=== PATIENT | male | born 1990 | race Caucasian/White ===

== ENCOUNTER → 2017-06-09 | Outpatient (CLI) | payer OTHER ==
[~2017-06-09] MED LIST: GADAVIST IV PRN
--- NOTE | 2017-06-09 09:38 | DIAGNOSTIC IMAGING REPORT ---
BRAIN COMBO HISTORY: 26 years-old Male CHIARI MALFORMATION,MIGRAINES chronic migraines with nausea and confusion COMPARISON: MRI of the brain from outside institution 07/06/2011 TECHNIQUE: Multiplanar multisequence MRI of the brain was obtained both with and without the use of 9 mL Gadavist FINDINGS: There is no restricted diffusion to suggest acute infarction. Large field of view metal furniture glazier localizer images demonstrate no gross abnormality. The midline structures including the corpus callosum, brainstem, optic chiasm, infundibulum and pituitary gland appear unremarkable the sagittal T1 series. No significant degenerative changes of the cervical spine. Cerebellar tonsils extend 6 mm below the level the foramen magnum compatible with Chiari I malformation. No syrinx of the imaged cervical spinal cord identified. Unchanged 9 x 5 mm ovoid circumscribed T1 and T2 hyperintense lesion of the left occipital calvarium as seen on image 18 series 3 previously measured 8 x 5 mm on study dated 07/06/2011 and appears to be present within the diploic space. No associated restricted diffusion. This may reflect an arachnoid granulation. There is no acute intracranial hemorrhage, midline shift, abnormal extra-axial collections, hydrocephalus or intracranial mass. The major flow voids at the level of the skull base appear to be patent. Mastoid air cells appear clear. Mild to moderate polypoid mucosal thickening of the maxillary sinuses. Mild ethmoid sinus disease. Hypoplasia of the right frontal sinus. Soft tissues and orbits are unremarkable. There is no abnormal intra-axial or extra-axial enhancement. IMPRESSION: 1. No acute intracranial abnormality identified. No abnormal enhancement. 2. Chiari I malformation without syrinx identified. 3. Moderate maxillary sinus disease. The above report was generated using voice recognition software. It may contain grammatical, syntax or spelling errors. Electronically signed by: Ernie Mon M.D. 06/09/2017 9:37 AM Dictated Date/Time: 06/09/2017 9:25 AM
== END | disposition home or self-care (01) ==
LOC: C.MRI 08:40
PROVIDERS: ATTEND Nurse Practitioner Adult Health
DX: R51 Headache (principal); G43.009 Migraine without aura, not intractable, without status migrainosus; G93.5 Compression of brain

== ENCOUNTER 2018-10-02 19:12 | Inpatient (IN) ==
[2018-10-02] MEDS ORDERED: SODIUM CHLORIDE 0.9% 1000ML 1,000 ML IV ONE (20:49)
[2018-10-02 21:08] LABS: Appearance Urine Clear (Clear); Bilirubin Urine Negative (Negative); Blood Urine 3+ (Negative); Color Urine Yellow; Glucose Urine UA Negative (Negative); Ketones Urine Negative (Negative); Leukocyte Esterase Urine Negative (Negative); Nitrite Urine Negative (Negative); Protein Urine Negative (Negative); Urobilinogen Urine Negative (Negative); pH Urine 6.5 (4.5-7.5)
[2018-10-02 21:19] LABS: Basophils # (auto) 0.02 K/uL (0-0.2); Basophils % (auto) 0.2 %; Eosinophils # (auto) 0.07 K/uL (0-0.5); Eosinophils % (auto) 0.6 %; Hematocrit (blood only) 44.5 % (42-52); Hemoglobin 16.3 g/dL (14.0-18.0); Immature Granulocytes # (auto) 0.02 K/uL (0.00-0.02); Immature Granulocytes % (auto) 0.2 %; Lymphocytes # (auto) 2.08 K/uL (1.2-3.4); Lymphocytes % (auto) 16.7 %; Mean Corpuscular Hgb Conc 36.6 g/dL (32-36); Mean Corpuscular Volume 89.4 fL (80-100); Mean Platelet Volume 10.1 fL (7.4-10.4); Monocytes # (auto) 1.15 K/uL (0.11-0.59); Monocytes % (auto) 9.2 %; Neutrophils # (auto) 9.11 K/uL (1.4-6.5); Neutrophils % (auto) 73.1 %; Platelet Count 312 K/uL (130-400); RDW Standard Deviation 38.8 fL (36.4-46.3); Red Blood Count 4.98 M/uL (4.7-6.1); White Blood Count 12.45 K/uL (4.8-10.8)
[2018-10-02 21:27] LABS: Albumin Level 4.4 gm/dl (3.4-5.0); Calcium 9.6 mg/dl (8.5-10.1); Creatinine Clr Calc Pharmacy 130.8 ml/min; Est GFR (Non-African American) 98.4; Magnesium 2.1 mg/dl (1.8-2.4); Potassium 3.5 mmol/L (3.5-5.1)
[2018-10-02 21:28] LABS: Epithelial Cell Urine Auto 0-5 /lpf (0-5); RBC Urine Automated 0-4 /hpf (0-4); WBC Urine Automated 0 /hpf (0-5)
[2018-10-02 21:55] LABS: Albumin Globulin Ratio 1.3 (0.9-2); Bilirubin,Total 0.5 mg/dl (0.2-1); Globulin 3.4 gm/dl (2.5-4.0); Total Protein 7.8 gm/dl (6.4-8.2)
[2018-10-02] MEDS ORDERED: LACTATED RINGER'S 1,000 ML IV ONE ×2 (22:01→22:58)
[2018-10-02 22:08] LABS: Lyme Ab IgG w/WB Rflx Negative (Negative); Lyme Ab IgM w/WB Rflx Negative (Negative)
--- NOTE | 2018-10-03 00:51 | History & Physical Report ---
Date of Service October 03, 2018 Assessment & Plan (1) Rhabdomyolysis: Pleasant 28yo M no significant PMH admitted 10/03 for rhabdomyolysis Rhabdomyolysis -Aggressive IVF: NSS 200ml/hr -Will send PT/INR, urine myoglobin -Repeat LFTs, CK in AM -Urine pH of 6.5, no indication for bicarb at this time -Continue to monitor for compartment syndrome symptoms Dispo: med/surg Code: Full DVTP: ambulation as tolerated History of Present Illness Chief Complaint: Generalized pain and weakness Primary Care Provider: [facility] Patient is an otherwise healthy 28yo M who presents with generalized pain and dark urine. Patient began a new workout regime last week, denies use of protein supplements/workout powders/pre-workout, etc. States he started doing weight lifting last tuesday, and felt sore afterwards attributing it to lactic acid, took some time off and worked out again at a high level 2 days ago. He looked up online possible causes of this, and notes when his urine started to get darker today that he should come in for evaluation. Currently, his upper extremities are most bothersome. In the ER, labs revealed a CK of 38,754, AST of 464, ALT of 149. BMP normal. UA showing pH 6.5, 3+blood, RBC 0-4, all consistent with rhabdomyolysis. He was given 3L of fluid in the ER. No bicarb given/indicated. Allergies Allergy/AdvReac Type Severity Reaction Status Date / Time No Known Allergies Allergy Unverified 10/02/18 23:36 Home Medications Home Medications Medication Instructions Recorded Confirmed Type No Known Home Medications 10/02/18 10/02/18 History Past Med/Surg History Medical History Heart burn Family History Other No significant family history Social History Preferred Language: Hungarian Communication Ability: Effective Beliefs That Will Affect Care: None Current Living Situation: Other Current Living Situation Comment: With girlfriend Other Information That Helps Us Care for You: No Feels Safe at Home: Yes Safety Concerns: Feels Safe At This Time Smoking Status: Former smoker Tobacco Type: cigarettes and smokeless tobacco Do You Dip or Chew Tobacco: No Second Hand Exposure: No Hx Alcohol Use: Yes Alcohol type: beer Hx Substance Use: No Review of Systems Review of Systems: All systems reviewed & are unremarkable except as noted in HPI & below Constitutional: + body aches; no fever Musculoskeletal: + myalgia and + body aches Physical Exam Constitutional: WD/WN, vitals as above Eyes: PERRL, conjunctivae normal, anicteric sclerae ENMT: external ear and nose normal, oropharynx normal Neck: trachea midline, no thyromegaly Respiratory: normal respiratory effort, lungs clear to auscultation Cardiovascular: RRR, no murmur, no edema Gastrointestinal (Abdomen): normal bowel sounds, soft, nontender, no hepatosplenomegaly Musculoskeletal: no cyanosis or clubbing, extremities motor strength 5/5 Extremities: no carpal pedal spasm No compartment syndrome noted in extremities Skin: no rashes, warm and dry Neurologic: patellar DTR's 2+ bilat, sensation intact Psychiatric: A+Ox3, euthymic affect Results & Data Vital Signs (Past 12 Hours) Vital Signs Temp Pulse Pulse Resp BP BP Pulse Ox 10/02/18 21:56 81 16 145/93 H 95 10/02/18 19:16 36.5 C 93 H 18 158/97 H 99 Laboratory Results 10/02/18 10/02/18 10/02/18 Range/Units 20:18 20:18 20:18 WBC (4.8-10.8) K/uL RBC (4.7-6.1) M/uL Hgb (14.0-18.0) g/dL Hct (42-52) % MCV (80-100) fL MCH (25-34) pg MCHC (32-36) g/dL RDW Std Deviation (36.4-46.3) fL RDW Coeff of Shuan (11.5-14.5) % Plt Count (130-400) K/uL MPV (7.4-10.4) fL Immature Gran % (Auto) % Neut % (Auto) % Lymph % (Auto) % [place] % (Auto) % Eos % (Auto) % Baso % (Auto) % Immature Gran # (Auto) (0.00-0.02) K/uL Neut # (Auto) (1.4-6.5) K/uL Lymph # (Auto) (1.2-3.4) K/uL [place] # (Auto) (0.11-0.59) K/uL Eos # (Auto) (0-0.5) K/uL Baso # (Auto) (0-0.2) K/uL Sodium 139 (136-145) mmol/L Potassium 3.5 (3.5-5.1) mmol/L Chloride 103 (98-107) mmol/L Carbon Dioxide 27 (21-32) mmol/L Anion Gap 9.0 (3-11) BUN 11 (7-18) mg/dl Creatinine 1.03 (0.6-1.4) mg/dl Est Cr Clr Drug Dosing 130.8 ml/min Est GFR ( Amer) 114.0 Est GFR (Non-Af Amer) 98.4 BUN/Creatinine Ratio 11.0 (10-20) Glucose 88 (70-99) mg/dl Calcium 9.6 (8.5-10.1) mg/dl Magnesium 2.1 (1.8-2.4) mg/dl Total Bilirubin 0.5 (0.2-1) mg/dl AST 464 H (15-37) U/L ALT 149 H (12-78) U/L Alkaline Phosphatase 82 (45-117) U/L Total Creatine Kinase 03646 H (39-308) U/L Total Protein 7.8 (6.4-8.2) gm/dl Albumin 4.4 (3.4-5.0) gm/dl Globulin 3.4 (2.5-4.0) gm/dl Albumin/Globulin Ratio 1.3 (0.9-2) Urine Color Yellow Urine Appearance Clear (Clear) Urine pH 6.5 (4.5-7.5) Ur Specific [place] 1.010 (1.000-1.030) Urine Protein Negative (Negative) Urine Glucose (UA) Negative (Negative) Urine Ketones Negative (Negative) Urine Blood 3+ H (Negative) Urine Nitrite Negative (Negative) Urine Bilirubin Negative (Negative) Urine Urobilinogen Negative (Negative) Ur Leukocyte Esterase Negative (Negative) Urine WBC (Auto) 0 (0-5) /hpf Urine RBC (Auto) 0-4 (0-4) /hpf U Hyaline Cast (Auto) Not Reportable U Epithel Cells (Auto) 0-5 (0-5) /lpf Urine Bacteria (Auto) Not Reportable Lyme Disease IgG Ab Negative (Negative) Lyme Disease IgM Ab Negative (Negative) 10/02/18 Range/Units 20:18 WBC 12.45 H (4.8-10.8) K/uL RBC 4.98 (4.7-6.1) M/uL Hgb 16.3 (14.0-18.0) g/dL Hct 44.5 (42-52) % MCV 89.4 (80-100) fL MCH 32.7 (25-34) pg MCHC 36.6 H (32-36) g/dL RDW Std Deviation 38.8 (36.4-46.3) fL RDW Coeff of Shaun 12.0 (11.5-14.5) % Plt Count 312 (130-400) K/uL MPV 10.1 (7.4-10.4) fL Immature Gran % (Auto) 0.2 % Neut % (Auto) 73.1 % Lymph % (Auto) 16.7 % Lynn % (Auto) 9.2 % Eos % (Auto) 0.6 % Baso % (Auto) 0.2 % Immature Gran # (Auto) 0.02 (0.00-0.02) K/uL Neut # (Auto) 9.11 H (1.4-6.5) K/uL Lymph # (Auto) 2.08 (1.2-3.4) K/uL [place] # (Auto) 1.15 H (0.11-0.59) K/uL Eos # (Auto) 0.07 (0-0.5) K/uL Baso # (Auto) 0.02 (0-0.2) K/uL Sodium (136-145) mmol/L Potassium (3.5-5.1) mmol/L Chloride (98-107) mmol/L Carbon Dioxide (21-32) mmol/L Anion Gap (3-11) BUN (7-18) mg/dl Creatinine (0.6-1.4) mg/dl Est Cr Clr Drug Dosing ml/min Est GFR ( Amer) Est GFR (Non-Af Amer) BUN/Creatinine Ratio (10-20) Glucose (70-99) mg/dl Calcium (8.5-10.1) mg/dl Magnesium (1.8-2.4) mg/dl Total Bilirubin (0.2-1) mg/dl AST (15-37) U/L ALT (12-78) U/L Alkaline Phosphatase (45-117) U/L Total Creatine Kinase (39-308) U/L Total Protein (6.4-8.2) gm/dl Albumin (3.4-5.0) gm/dl Globulin (2.5-4.0) gm/dl Albumin/Globulin Ratio (0.9-2) Urine Color Urine Appearance (Clear) Urine pH (4.5-7.5) Ur Specific [place] (1.000-1.030) Urine Protein (Negative) Urine Glucose (UA) (Negative) Urine Ketones (Negative) Urine Blood (Negative) Urine Nitrite (Negative) Urine Bilirubin (Negative) Urine Urobilinogen (Negative) Ur Leukocyte Esterase (Negative) Urine WBC (Auto) (0-5) /hpf Urine RBC (Auto) (0-4) /hpf U Hyaline Cast (Auto) U Epithel Cells (Auto) (0-5) /lpf Urine Bacteria (Auto) Lyme Disease IgG Ab (Negative) Lyme Disease IgM Ab (Negative) Code Status & VTE Plan Code Status Full Supervising Physician Co-Signing Physician Notes Patient seen and examined, chart reviewed, case discussed with Dr. Cruz and I agree with her assessement and plan as above. Briefly, patient is a 28yo C male with no significant past medical or surgical history presenting with rhabdomyolysis after resuming weight lifting. Patient with severe pain in his upper extremities. Also with dark urine On exam he is afebrile, hemodynamically stable, NAD Skin - intact, no rash HEENT - MMM, neck supple, PERRL Heart - +S1/S2, regular, on m/r/g Lungs -CTA Abd - +BS, soft, NT/ND Ext - muscles soft, slightly tender in UEs Neuro - no deficits Labs and images reviewed - WBC=12.45, NAC=894, IRU=392, MN=42052, UA with 3+ blood, negative RBCs Assessment/Plan: 28yo C male with exertional rhabdomyolysis. Patient with no PMH/PSH/medications or supplements -Admit to medical floor -Check urine myoglobin -BMP in AM -LFTs in AM -Aggressive IVF -Remainder of plan as above Resident Activity Tracking Resident Involvement: Resident Care Provided Care Provided: Adult Hospital Medicine (1) Rhabdomyolysis Rhabdomyolysis type: non-traumatic Qualified Code(s): M62.82 - Rhabdomyolysis
[2018-10-03] MEDS ORDERED: MAGNESIUM HYDROXIDE SUSP 30 ML UDC PO PRN (02:26)
[2018-10-03] MEDS ORDERED: POLYETHYLENE (MIRALAX) 17 GM PACK PO PRN (02:26)
[2018-10-03] MEDS ORDERED: ONDANSETRON INJ 2 MG/ML 2 ML VIAL IV PRN (02:26)
[2018-10-03] MEDS: SODIUM CHLORIDE 0.9% 1000ML 1,000 ML IV SCH ×5 (02:43→22:24)
[2018-10-03] MEDS: ALUMINUM/MAGNESIUM SUSP 30 ML UDC PO PRN ×2 (02:46→11:40)
[2018-10-03 08:02] LABS: Prothrombin Time 10.2 Seconds (9.0-12.0)
[2018-10-03 08:37] LABS: Albumin Level 3.5 gm/dl (3.4-5.0); Calcium 8.9 mg/dl (8.5-10.1); Creatinine Clr Calc Pharmacy 154.3 ml/min; Est GFR (African American) 136.1; Est GFR (Non-African American) 117.5; Potassium 4.4 mmol/L (3.5-5.1)
[2018-10-03 08:38] LABS: Hematocrit (blood only) 39.2 % (42-52); Mean Corpuscular Hgb Conc 35.7 g/dL (32-36); Mean Corpuscular Volume 89.3 fL (80-100); Platelet Count 250 K/uL (130-400); Red Blood Count 4.39 M/uL (4.7-6.1); White Blood Count 7.62 K/uL (4.8-10.8)
[2018-10-03 08:39] LABS: ALC (manual) 2.85 K/uL (1.2-3.4); Eosinophils % (manual) 2.6 %; Lymphocytes # (manual) 1.52 K/uL (1.2-3.4); Monocytes # (manual) 0.53 K/uL (0.11-0.59); Reactive Lymphocytes # (manual) 1.33 K/uL
[2018-10-03 09:05] LABS: Albumin Globulin Ratio 1.3 (0.9-2); Bilirubin,Total 0.8 mg/dl (0.2-1); Globulin 2.8 gm/dl (2.5-4.0); Total Protein 6.3 gm/dl (6.4-8.2)
[2018-10-03] MEDS: ACETAMINOPHEN 325 MG TAB PO PRN (15:30)
--- NOTE | 2018-10-04 02:01 | Emergency Department Note ---
Entered by Tino Ferrari acting as a scribe for Ailin Martinez DO History of Present Illness General Chief complaint: Pain (Generalized) Stated complaint: DARK BROWN URINE, ARM AND CHEST PAIN Time Seen by Provider: 10/02/18 20:35 Source: patient History of Present Illness Onset (ago): day(s) 2 Location: chest and upper extremity Pain Consistency: + other (worsening) Quality: + other (soreness) Exacerbated By: + movement (lifting weights) Associated symptoms: + other (dark urine) The patient is a 28 year old male who presents to the Emergency Room with complaints of worsening muscle soreness. The patient reports that he did cardio and lifted weights for the upper body two days ago for the first time in a while. He states that it was challenging, but it was not beyond what he has done in the past. He reports that he was sore primarily in the chest and arms yesterday, and his soreness worsened today to the point where he had great difficulty moving his arms. He also reports that his urine has become dark even though he is not drinking any less than usual. He notes intermittent tingling in his pinky. He denies any dizziness. He notes that he also worked out his lower body 5 days ago. He denies a history of kidney problems. He states that he regularly takes Zantac for heartburn. No other recent trauma or change in activity. Home Medications Home Medications Medication Instructions Recorded Confirmed Type No Known Home Medications 10/02/18 10/02/18 History Allergies Allergy/AdvReac Type Severity Reaction Status Date / Time No Known Allergies Allergy Unverified 10/02/18 23:36 Past Med/Surg History Medical History Heart burn Family History Other No significant family history Social History Preferred Language: Bulgarian Communication Ability: Effective Beliefs That Will Affect Care: None Current Living Situation: Other Current Living Situation Comment: With girlfriend Other Information That Helps Us Care for You: No Feels Safe at Home: Yes Safety Concerns: Feels Safe At This Time Smoking Status: Former smoker Tobacco Type: cigarettes and smokeless tobacco Do You Dip or Chew Tobacco: No Second Hand Exposure: No Hx Alcohol Use: Yes Alcohol type: beer Hx Substance Use: No Review of Systems See HPI for pertinent positives & negatives. and A total of 10 systems reviewed and were otherwise negative Physical Exam Vital Signs Vital Signs - 24 hr 10/02/18 19:16 10/02/18 21:56 Temperature 97.7 F Temperature Source Oral Sepsis Recent Fever Within 48 Hours No Sepsis Action Taken by Nursing No Action Required Pulse Rate 93 H Pulse Rate [Finger] 81 Respiratory Rate 18 16 Respiratory Effort / Characteristics Non-Labored Non-Labored Respiratory Depth Normal Normal Respiratory Pattern Regular Blood Pressure 158/97 H Blood Pressure [Left Arm] 145/93 H Blood Pressure Mean 117 Blood Pressure Mean [Left Arm] 110 Blood Pressure Position [Left Arm] Lying Pulse Oximetry 99 95 Oxygen Delivery Method Room Air Room Air GENERAL: alert, well appearing, well nourished, no distress, non-toxic EYE EXAM: normal conjunctiva, PERRLA, EOMI OROPHARYNX: no exudate, no erythema, lips, buccal mucosa, and tongue normal and mucous membranes are moist NECK: supple, no nuchal rigidity, no adenopathy, non-tender LUNGS: Clear to auscultation. Normal chest wall mechanics, no w/r/r HEART: no murmurs, S1 normal and S2 normal ABDOMEN: abdomen soft, non-tender, normo-active bowel sounds, no masses, no rebound or guarding. BACK: Back is symmetrical on inspection and there is no deformity, no midline tenderness, no CVA tenderness. SKIN: no rashes and no bruising UPPER EXTREMITIES: upper extremities are grossly normal, compartments are soft. Normal pulses bilaterally, normal cap refill. LOWER EXTREMITIES: No pitting edema, compartments are soft. Normal pulses bilaterally. NEURO EXAM: Normal sensorium, cranial nerves II-XII grossly intact, normal speech, no gross weakness of arms, no gross weakness of legs. Gross sensation intact. Course 2043: The patient was evaluated in room C12B. A complete history and physical examination were performed. 2336: I updated the patient. 2348: I consulted Dr. Carrington � [facility] Hospitalist. The patient will be reevaluated for hospitalization. Administered Medications Acetaminophen (Tylenol) 650 mg PO Q4H PRN PRN Reason: pain/fever Stop: 11/02/18 02:25 Last Admin: 10/03/18 15:30 Dose: 650 mg Documented by: [id number] Al Hydrox/Mg Hydrox/Simethicone (Maalox) 30 ml PO Q6H PRN PRN Reason: Dyspepsia Stop: 11/02/18 02:25 Last Admin: 10/03/18 11:40 Dose: 30 ml Documented by: [id number] Admin: 10/03/18 02:46 Dose: 30 ml Documented by: [id number] Sodium Chloride (Nss 1000ml) 1,000 mls @ 200 mls/hr IV .Q5H TAY Stop: 11/02/18 02:25 Last Admin: 10/03/18 22:24 Dose: 200 mls/hr Documented by: [id number] Infusion: 10/03/18 22:24 Dose: 0 mls/hr Documented by: [id number] Admin: 10/03/18 17:40 Dose: 200 mls/hr Documented by: [id number] Infusion: 10/03/18 17:40 Dose: 0 mls/hr Documented by: [id number] Admin: 10/03/18 12:26 Dose: 200 mls/hr Documented by: [id number] Infusion: 10/03/18 12:26 Dose: 200 mls/hr Documented by: [id number] Admin: 10/03/18 07:26 Dose: 200 mls/hr Documented by: [id number] Infusion: 10/03/18 07:26 Dose: 200 mls/hr Documented by: [id number] Admin: 10/03/18 02:43 Dose: 200 mls/hr Documented by: [id number] Ranitidine HCl (Zantac) 150 mg PO HS [facility] Stop: 11/02/18 20:59 Last Admin: 10/03/18 21:12 Dose: 150 mg Documented by: [id number] Discontinued Medications Sodium Chloride (Nss 1000ml) 1,000 mls @ 999 mls/hr IV .Q1H1M ONE Stop: 10/02/18 21:49 Last Infusion: 10/02/18 22:11 Dose: 0 mls/hr Documented by: [id number] Admin: 10/02/18 21:05 Dose: 999 mls/hr Documented by: [id number] Lactated Ringer's (Lr) 1,000 mls @ 999 mls/hr IV .Q1H1M ONE Stop: 10/02/18 23:01 Last Infusion: 10/02/18 23:55 Dose: 0 mls/hr Documented by: [id number] Admin: 10/02/18 22:14 Dose: 999 mls/hr Documented by: [id number] Lactated Ringer's (Lr) 1,000 mls @ 999 mls/hr IV .Q1H1M ONE Stop: 10/02/18 23:58 Last Infusion: 10/03/18 01:09 Dose: 0 mls/hr Documented by: [id number] Admin: 10/02/18 23:55 Dose: 999 mls/hr Documented by: [id number] Medical Decision Making Differential Diagnosis Differential diagnosis: muscle strain, sprain, rhabdomyolysis, compartment syndrome, acute electrolyte abnormality, influenza Medical Records Attestation: I reviewed the patient's medical records. Home Medications Current Medication List: was personally reviewed by me Laboratory Data Attestation: I reviewed the patient's lab results. Result diagrams: 10/03/18 07:36 10/03/18 07:36 Lab Results 10/02/18 10/02/18 10/02/18 Range/Units 20:18 20:18 20:18 WBC 12.45 H (4.8-10.8) K/uL RBC 4.98 (4.7-6.1) M/uL Hgb 16.3 (14.0-18.0) g/dL Hct 44.5 (42-52) % MCV 89.4 (80-100) fL MCH 32.7 (25-34) pg MCHC 36.6 H (32-36) g/dL RDW Std Deviation 38.8 (36.4-46.3) fL RDW Coeff of Shaun 12.0 (11.5-14.5) % Plt Count 312 (130-400) K/uL MPV 10.1 (7.4-10.4) fL Immature Gran % (Auto) 0.2 % Neut % (Auto) 73.1 % Lymph % (Auto) 16.7 % [place] % (Auto) 9.2 % Eos % (Auto) 0.6 % Baso % (Auto) 0.2 % Immature Gran # (Auto) 0.02 (0.00-0.02) K/uL Neut # (Auto) 9.11 H (1.4-6.5) K/uL Lymph # (Auto) 2.08 (1.2-3.4) K/uL [place] # (Auto) 1.15 H (0.11-0.59) K/uL Eos # (Auto) 0.07 (0-0.5) K/uL Baso # (Auto) 0.02 (0-0.2) K/uL Sodium 139 (136-145) mmol/L Potassium 3.5 (3.5-5.1) mmol/L Chloride 103 (98-107) mmol/L Carbon Dioxide 27 (21-32) mmol/L Anion Gap 9.0 (3-11) BUN 11 (7-18) mg/dl Creatinine 1.03 (0.6-1.4) mg/dl Est Cr Clr Drug Dosing 130.8 ml/min Est GFR ( Amer) 114.0 Est GFR (Non-Af Amer) 98.4 BUN/Creatinine Ratio 11.0 (10-20) Glucose 88 (70-99) mg/dl Calcium 9.6 (8.5-10.1) mg/dl Magnesium 2.1 (1.8-2.4) mg/dl Total Bilirubin 0.5 (0.2-1) mg/dl AST 464 H (15-37) U/L ALT 149 H (12-78) U/L Alkaline Phosphatase 82 (45-117) U/L Total Creatine Kinase 27868 H (39-308) U/L Total Protein 7.8 (6.4-8.2) gm/dl Albumin 4.4 (3.4-5.0) gm/dl Globulin 3.4 (2.5-4.0) gm/dl Albumin/Globulin Ratio 1.3 (0.9-2) Urine Color Urine Appearance (Clear) Urine pH (4.5-7.5) Ur Specific [place] (1.000-1.030) Urine Protein (Negative) Urine Glucose (UA) (Negative) Urine Ketones (Negative) Urine Blood (Negative) Urine Nitrite (Negative) Urine Bilirubin (Negative) Urine Urobilinogen (Negative) Ur Leukocyte Esterase (Negative) Urine WBC (Auto) (0-5) /hpf Urine RBC (Auto) (0-4) /hpf U Hyaline Cast (Auto) U Epithel Cells (Auto) (0-5) /lpf Urine Bacteria (Auto) Lyme Disease IgG Ab Negative (Negative) Lyme Disease IgM Ab Negative (Negative) 10/02/18 Range/Units 20:18 WBC (4.8-10.8) K/uL RBC (4.7-6.1) M/uL Hgb (14.0-18.0) g/dL Hct (42-52) % MCV (80-100) fL MCH (25-34) pg MCHC (32-36) g/dL RDW Std Deviation (36.4-46.3) fL RDW Coeff of Shaun (11.5-14.5) % Plt Count (130-400) K/uL MPV (7.4-10.4) fL Immature Gran % (Auto) % Neut % (Auto) % Lymph % (Auto) % [place] % (Auto) % Eos % (Auto) % Baso % (Auto) % Immature Gran # (Auto) (0.00-0.02) K/uL Neut # (Auto) (1.4-6.5) K/uL Lymph # (Auto) (1.2-3.4) K/uL [place] # (Auto) (0.11-0.59) K/uL Eos # (Auto) (0-0.5) K/uL Baso # (Auto) (0-0.2) K/uL Sodium (136-145) mmol/L Potassium (3.5-5.1) mmol/L Chloride (98-107) mmol/L Carbon Dioxide (21-32) mmol/L Anion Gap (3-11) BUN (7-18) mg/dl Creatinine (0.6-1.4) mg/dl Est Cr Clr Drug Dosing ml/min Est GFR ( Amer) Est GFR (Non-Af Amer) BUN/Creatinine Ratio (10-20) Glucose (70-99) mg/dl Calcium (8.5-10.1) mg/dl Magnesium (1.8-2.4) mg/dl Total Bilirubin (0.2-1) mg/dl AST (15-37) U/L ALT (12-78) U/L Alkaline Phosphatase (45-117) U/L Total Creatine Kinase (39-308) U/L Total Protein (6.4-8.2) gm/dl Albumin (3.4-5.0) gm/dl Globulin (2.5-4.0) gm/dl Albumin/Globulin Ratio (0.9-2) Urine Color Yellow Urine Appearance Clear (Clear) Urine pH 6.5 (4.5-7.5) Ur Specific [place] 1.010 (1.000-1.030) Urine Protein Negative (Negative) Urine Glucose (UA) Negative (Negative) Urine Ketones Negative (Negative) Urine Blood 3+ H (Negative) Urine Nitrite Negative (Negative) Urine Bilirubin Negative (Negative) Urine Urobilinogen Negative (Negative) Ur Leukocyte Esterase Negative (Negative) Urine WBC (Auto) 0 (0-5) /hpf Urine RBC (Auto) 0-4 (0-4) /hpf U Hyaline Cast (Auto) Not Reportable U Epithel Cells (Auto) 0-5 (0-5) /lpf Urine Bacteria (Auto) Not Reportable Lyme Disease IgG Ab (Negative) Lyme Disease IgM Ab (Negative) ECG Data Attestation: I personally reviewed and interpreted this ECG as follows: Indication: chest pain Rate (beats per minute): 67 Rhythm: sinus rhythm Findings: + other (normal axis, normal intervals); no PAC, no PVC, no ST depression and no ST elevation Blood Pressure Blood Pressure Findings: Elevated blood pressure Blood Pressure Disposition: further management by hospitalist MDM Narrative Patient here well-appearing despite complaints. Patient found to have markedly elevated CK consistent with rhabdomyolysis. Renal function intact. Patient hemodynamically stable and afebrile. No obvious trauma on exam and compartments soft. Patient made aware of all results and was in agreement with plan. Patient did receive 3 L of IV fluids well in the emergency room. No indication at this time for bicarb drip. Patient made aware of risks associated with rhabdomyolysis and need for additional inpatient monitoring and treatment. LFTs elevated also, likely secondary to rhabdo. Case discussed with hospitalist. Impression & Plan Rhabdomyolysis Discharge Plan Visit Data *Final* Discharge Date/Time: 10/03/18 01:41 Chief Complaint: Pain (Generalized) Stated Complaint: DARK BROWN URINE, ARM AND CHEST PAIN ED Provider: Ailin Martinez Discharge Problem: Rhabdomyolysis Patient Disposition: Admitted As Inpatient Discharge Instructions Interventions: ED Discharge Assessment Last Done: 10/03/18 01:41 Discharge Problem: Rhabdomyolysis Qualifiers: Rhabdomyolysis type: non-traumatic Qualified Code(s): M62.82 - Rhabdomyolysis The scribe's documentation has been prepared under my direction and personally reviewed by me in its entirety. I confirm that the note above accurately reflects all work, treatment, procedures, and medical decision making performed by me.
[2018-10-04] MEDS: SODIUM CHLORIDE 0.9% 1000ML 1,000 ML IV SCH ×5 (03:23→23:26)
[2018-10-04 06:04] LABS: Basophils # (auto) 0.02 K/uL (0-0.2); Basophils % (auto) 0.3 %; Eosinophils # (auto) 0.14 K/uL (0-0.5); Hematocrit (blood only) 37.8 % (42-52); Hemoglobin 13.5 g/dL (14.0-18.0); Immature Granulocytes # (auto) 0.02 K/uL (0.00-0.02); Immature Granulocytes % (auto) 0.3 %; Lymphocytes # (auto) 2.49 K/uL (1.2-3.4); Lymphocytes % (auto) 34.9 %; Mean Corpuscular Hgb Conc 35.7 g/dL (32-36); Mean Corpuscular Volume 89.8 fL (80-100); Monocytes # (auto) 0.59 K/uL (0.11-0.59); Monocytes % (auto) 8.3 %; Neutrophils # (auto) 3.87 K/uL (1.4-6.5); Neutrophils % (auto) 54.2 %; Platelet Count 252 K/uL (130-400); RDW Coefficient of Variation 12.3 % (11.5-14.5); RDW Standard Deviation 39.5 fL (36.4-46.3); Red Blood Count 4.21 M/uL (4.7-6.1); White Blood Count 7.13 K/uL (4.8-10.8)
[2018-10-04 06:35] LABS: Albumin Level 3.3 gm/dl (3.4-5.0); BUN Creatinine Ratio 10.2 (10-20); Calcium 8.7 mg/dl (8.5-10.1); Creatinine Clr Calc Pharmacy 152.5 ml/min; Est GFR (African American) 135.5; Est GFR (Non-African American) 116.9; Potassium 4.1 mmol/L (3.5-5.1)
[2018-10-04 07:09] LABS: Albumin Globulin Ratio 1.1 (0.9-2); Bilirubin,Total 0.5 mg/dl (0.2-1); Globulin 2.9 gm/dl (2.5-4.0); Total Protein 6.2 gm/dl (6.4-8.2)
[2018-10-04] MEDS: ACETAMINOPHEN 325 MG TAB PO PRN ×2 (10:26→17:21)
--- NOTE | 2018-10-04 13:33 | Family Medicine Progress Note ---
Date of Service October 04, 2018 Assessment & Plan (1) Rhabdomyolysis: Pleasant 28yo M no significant PMH admitted 10/03 for rhabdomyolysis Rhabdomyolysis -CPK level down to 32k. -Continue Aggressive IVF: NSS 200ml/hr -LFT - normal bili with rising transaminases. Continue to follow. Dispo: med/surg Code: Full DVTP: ambulation as tolerated Subjective Muscle soreness much better today. Is able to move his arm above shoulder. Still feels sore and some joints feel tight due to it. Denies chest pain, shortness of breath Physical Exam Constitutional: WD/WN, vitals as above Respiratory: normal respiratory effort, lungs clear to auscultation Cardiovascular: RRR, no murmur, no edema Psychiatric: A+Ox3, euthymic affect Results & Data Vital Signs (Past 12 Hours) Vital Signs Temp Pulse Resp BP Pulse Ox 10/04/18 07:00 36.7 C 67 20 125/77 98 (1) Rhabdomyolysis Rhabdomyolysis type: non-traumatic Qualified Code(s): M62.82 - Rhabdomyolysis
[2018-10-05] MEDS: SODIUM CHLORIDE 0.9% 1000ML 1,000 ML IV SCH ×4 (04:30→19:15)
[2018-10-05 05:56] LABS: Basophils # (auto) 0.02 K/uL (0-0.2); Basophils % (auto) 0.3 %; Eosinophils # (auto) 0.18 K/uL (0-0.5); Eosinophils % (auto) 2.3 %; Hematocrit (blood only) 37.3 % (42-52); Hemoglobin 13.5 g/dL (14.0-18.0); Immature Granulocytes # (auto) 0.02 K/uL (0.00-0.02); Immature Granulocytes % (auto) 0.3 %; Lymphocytes # (auto) 3.11 K/uL (1.2-3.4); Lymphocytes % (auto) 40.1 %; Mean Corpuscular Hgb Conc 36.2 g/dL (32-36); Mean Corpuscular Volume 89.9 fL (80-100); Mean Platelet Volume 10.2 fL (7.4-10.4); Monocytes # (auto) 0.75 K/uL (0.11-0.59); Monocytes % (auto) 9.7 %; Neutrophils # (auto) 3.67 K/uL (1.4-6.5); Neutrophils % (auto) 47.3 %; Platelet Count 241 K/uL (130-400); RDW Coefficient of Variation 12.1 % (11.5-14.5); RDW Standard Deviation 39.2 fL (36.4-46.3); Red Blood Count 4.15 M/uL (4.7-6.1); White Blood Count 7.75 K/uL (4.8-10.8)
[2018-10-05 06:28] LABS: Albumin Level 3.4 gm/dl (3.4-5.0); BUN Creatinine Ratio 10.8 (10-20); Bilirubin,Total 0.5 mg/dl (0.2-1); Calcium 8.3 mg/dl (8.5-10.1); Creatinine Clr Calc Pharmacy 154.3 ml/min; Est GFR (African American) 136.1; Est GFR (Non-African American) 117.5
[2018-10-05 07:14] LABS: Albumin Globulin Ratio 1.2 (0.9-2); Globulin 2.8 gm/dl (2.5-4.0); Total Protein 6.2 gm/dl (6.4-8.2)
[2018-10-06] MEDS: SODIUM CHLORIDE 0.9% 1000ML 1,000 ML IV SCH ×5 (00:04→20:23)
[2018-10-06 05:56] LABS: Basophils # (auto) 0.02 K/uL (0-0.2); Basophils % (auto) 0.3 %; Eosinophils # (auto) 0.12 K/uL (0-0.5); Eosinophils % (auto) 1.6 %; Hematocrit (blood only) 40.7 % (42-52); Hemoglobin 14.5 g/dL (14.0-18.0); Immature Granulocytes # (auto) 0.02 K/uL (0.00-0.02); Immature Granulocytes % (auto) 0.3 %; Lymphocytes # (auto) 2.46 K/uL (1.2-3.4); Lymphocytes % (auto) 32.3 %; Mean Corpuscular Hgb Conc 35.6 g/dL (32-36); Mean Corpuscular Volume 89.8 fL (80-100); Mean Platelet Volume 10.2 fL (7.4-10.4); Monocytes # (auto) 0.66 K/uL (0.11-0.59); Monocytes % (auto) 8.7 %; Neutrophils # (auto) 4.33 K/uL (1.4-6.5); Neutrophils % (auto) 56.8 %; Platelet Count 250 K/uL (130-400); RDW Coefficient of Variation 12.1 % (11.5-14.5); RDW Standard Deviation 39.2 fL (36.4-46.3); Red Blood Count 4.53 M/uL (4.7-6.1); White Blood Count 7.61 K/uL (4.8-10.8)
[2018-10-06 06:27] LABS: Albumin Level 3.6 gm/dl (3.4-5.0); BUN Creatinine Ratio 11.1 (10-20); Calcium 9.1 mg/dl (8.5-10.1); Creatinine Clr Calc Pharmacy 138.4 ml/min; Est GFR (African American) 122.6; Est GFR (Non-African American) 105.8; Potassium 3.7 mmol/L (3.5-5.1)
[2018-10-06 06:56] LABS: Albumin Globulin Ratio 1.1 (0.9-2); Bilirubin,Total 0.6 mg/dl (0.2-1); Globulin 3.2 gm/dl (2.5-4.0); Total Protein 6.8 gm/dl (6.4-8.2)
--- NOTE | 2018-10-06 09:01 | Family Medicine Progress Note ---
Date of Service October 05, 2018 Assessment & Plan (1) Rhabdomyolysis: Pleasant 28yo M no significant PMH admitted 10/03 for rhabdomyolysis Rhabdomyolysis -CPK level went up. Suspect continued muscle injury. -Renal function stable. -Continue Aggressive IVF: NSS 200ml/hr -LFT elevated - continue to follow. Dispo: med/surg Code: Full DVTP: ambulation as tolerated Subjective muscle soreness getting better. denies shortness of breath. urinating well, keeping up with oral fluid intake Physical Exam Constitutional: WD/WN, vitals as above Respiratory: normal respiratory effort, lungs clear to auscultation Cardiovascular: RRR, no murmur, no edema Psychiatric: A+Ox3, euthymic affect Results & Data Vital Signs (Past 12 Hours) Vital Signs Temp Pulse Resp BP Pulse Ox 10/06/18 07:00 37 C 58 L 18 121/79 98 10/05/18 23:00 36.7 C 52 L 18 116/77 98 (1) Rhabdomyolysis Rhabdomyolysis type: non-traumatic Qualified Code(s): M62.82 - Rhabdomyolysis
--- NOTE | 2018-10-06 09:06 | Family Medicine Progress Note ---
Date of Service October 06, 2018 Assessment & Plan (1) Rhabdomyolysis: Pleasant 28yo M no significant PMH admitted 10/03 for rhabdomyolysis Rhabdomyolysis -CPK level down to 18k. -Renal function stable. -LFT starting to coming down. -Continue Aggressive IVF: NSS 200ml/hr Dispo: med/surg Code: Full DVTP: ambulation as tolerated Subjective generalized muscle soreness still present but improving. denies any complains wanting to know when he can leave. no chest pain, shortness of breath Physical Exam Constitutional: WD/WN, vitals as above comfortably sitting in bed Respiratory: normal respiratory effort, lungs clear to auscultation Cardiovascular: RRR, no murmur, no edema Psychiatric: A+Ox3, euthymic affect Results & Data Vital Signs (Past 12 Hours) Vital Signs Temp Pulse Resp BP Pulse Ox 10/06/18 07:00 37 C 58 L 18 121/79 98 10/05/18 23:00 36.7 C 52 L 18 116/77 98 (1) Rhabdomyolysis Rhabdomyolysis type: non-traumatic Qualified Code(s): M62.82 - Rhabdomyolysis
[2018-10-06] MEDS: ACETAMINOPHEN 325 MG TAB PO PRN (11:12)
[2018-10-07] MEDS: ACETAMINOPHEN 325 MG TAB PO PRN (00:25)
[2018-10-07] MEDS: SODIUM CHLORIDE 0.9% 1000ML 1,000 ML IV SCH ×2 (00:58→05:56)
[2018-10-07 09:40] LABS: Albumin Globulin Ratio 1.2 (0.9-2); Albumin Level 3.7 gm/dl (3.4-5.0); BUN Creatinine Ratio 10.6 (10-20); Bilirubin,Total 0.6 mg/dl (0.2-1); Calcium 9.2 mg/dl (8.5-10.1); Creatinine Clr Calc Pharmacy 149.1 ml/min; Est GFR (African American) 134.2; Est GFR (Non-African American) 115.8; Globulin 3.2 gm/dl (2.5-4.0); Potassium 4.1 mmol/L (3.5-5.1); Total Protein 6.9 gm/dl (6.4-8.2)
--- NOTE | 2018-10-07 09:48 | Discharge Summary ---
Date of Service October 07, 2018 Admission HPI Per Admitting Provider Patient is an otherwise healthy 28yo M who presents with generalized pain and dark urine. Patient began a new workout regime last week, denies use of protein supplements/workout powders/pre-workout, etc. States he started doing weight lifting last tuesday, and felt sore afterwards attributing it to lactic acid, took some time off and worked out again at a high level 2 days ago. He looked up online possible causes of this, and notes when his urine started to get darker today that he should come in for evaluation. Currently, his upper extremities are most bothersome. In the ER, labs revealed a CK of 38,754, AST of 464, ALT of 149. BMP normal. UA showing pH 6.5, 3+blood, RBC 0-4, all consistent with rhabdomyolysis. He was given 3L of fluid in the ER. No bicarb given/indicated. Principal Diagnosis Rhabdomyolysis Discharge Exam Constitutional WD/WN, vitals as above Respiratory normal respiratory effort, lungs clear to auscultation Cardiovascular RRR, no murmur, no edema Psychiatric A+Ox3, euthymic affect Discharge Data Allergies Allergy/AdvReac Type Severity Reaction Status Date / Time No Known Allergies Allergy Unverified 10/02/18 23:36 Consultations 10/03/18 01:33 ED Decision to Admit Stat Hospital Course (1) Rhabdomyolysis: Pleasant 28yo M no significant PMH admitted 10/03 for rhabdomyolysis Rhabdomyolysis -CPK level on admission 38K and had elevated transaminases into 500s. -Kept on aggressive hydration -Renal function stayed stable. -On day of discharge CPK level down to 5k and Transaminases in 200s. -To follow up with PCP and have recheck labs done to confirm normalization before resuming any physical exertion. -Reiterated hydration. Total Time Total Time Spent Total Time Spent (In Minutes): 35 Discharge Plan Discharge Items Patient Disposition: Home - Self-Care Reason For Visit: RHABDOMYOLYSIS Discharge Diagnosis: Rhabdomyolysis Discharge Goals: Prevent disease Activity: Resume your previous activity Non-emergency contact: Primary Care Provider Call non-emergency contact if: your symptoms worsen Follow-up/Referrals: [facility] [Primary Care Provider] - Diet: Regular Addtl Provider Instructions: Please follow up with family physician in one week You will need to have recheck on muscle enzyme - creatine phosphokinase and also your liver function test to make sure they have returned to normal level before you return to any physical exertion/exercise. Keep hydrated and avoid sudden increase in aggressive physical activity in future. Prescriptions: No Action No Known Home Medications RF: 0 Stand-Alone Forms: [facility] Discharge Orders: Discharge Order (Routine); Ordered 10/07/18 Ordered By: Naida Tan Admission Data Admit Date/Time: 10/03/18 00:51 Attending Provider: Naida Tan Admit Provider: Osiris Cruz Primary Care Provider: [facility] Other Providers: Valeria Carrington Service: Medical
== END 2018-10-07 10:39 | disposition home or self-care (01) | DRG 558 ==
LOC: ED 19:12 → 4E 10-03 00:51 → SUATTDRO 10-03 00:51 → 4E 10-03 01:41
DX: M62.82 Rhabdomyolysis